=== PATIENT | male | born 1975 | race Caucasian/White ===

== ENCOUNTER 2016-12-19 18:09 | Emergency (ER) | payer OTHER ==
[2016-12-19 18:21] VITALS: BP 147/82; PULSE 72; TEMP 98.8; BMI 25.1
--- NOTE | 2016-12-19 18:22 | PDOC ---
Rapid Medical Evaluation Chief Complaint: Back Pain Time Seen by Provider: 12/19/16 18:18 Medical Evaluation: Allergies Allergy/AdvReac Type Severity Reaction Status Date / Time No Known Allergies Allergy Verified 12/19/16 18:17 12/19/16 18:21 I have performed a brief in-person evaluation of this patient. The Patient presents with a chief complaint of right flank pain x 1 week intermittent states pain is worse last night. States pain in right flank with urination. no fever or chills, no nausea Pertinent physical exam findings are: NAD unlabored breathing no cva tenderness I have ordered the following: urinalysis ordered The patient will proceed to the ED for further evaluation.
[2016-12-19 18:52] LABS: URINE APPEARANCE CLOUDY; URINE BILIRUBIN NEGATIVE (NEGATIVE); URINE BLOOD 2+ (NEGATIVE); URINE COLOR LTYELLOW; URINE GLUCOSE (UA) NEGATIVE (NEGATIVE); URINE KETONE NEGATIVE (NEGATIVE); URINE NITRITE NEGATIVE (NEGATIVE); URINE PROTEIN NEGATIVE (NEGATIVE); URINE UROBILINOGEN NEGATIVE mg/dL (0.2-1.0)
[2016-12-19 18:55] LABS: BASOPHIL 0.6 % (0-2.0); EOSINOPHIL 3.2 % (0-4.5); MCHC 34.4 g/dl (32.0-35.9); MEAN CELL VOLUME 87.1 fl (80-96); MEAN PLT VOLUME 7.6 fl (7.5-11.1); NEUTROPHILS 52.8 % (42.8-82.8); PLATELET COUNT 186 K/MM3 (134-434); RDW 12.5 % (11.9-15.9); WHITE BLOOD COUNT 3.8 K/mm3 (4.0-10.0)
[2016-12-19 19:12] LABS: ALK PHOS 98 U/L (45-117); ANION GAP 6 (8-16); BILIRUBIN,TOTAL 1.2 mg/dL (0.2-1.0); CALCIUM 8.5 mg/dL (8.5-10.1); CO2 28 mmol/L (21-32); CREATININE 1.3 mg/dL (0.7-1.3); GLUCOSE,RANDOM 113 mg/dL (74-106); SGOT/AST 42 U/L (15-37); SGPT/ALT 54 U/L (12-78); TOT PROT 6.8 g/dl (6.4-8.2)
[2016-12-19 19:21] LABS: URINE RBC 39; URINE WBC 520
--- NOTE | 2016-12-19 19:37 | PDOC ---
History of Present Illness - General Chief Complaint: Back Pain Stated Complaint: BACK PAIN Time Seen by Provider: 12/19/16 18:18 History Source: Patient Exam Limitations: No Limitations - History of Present Illness Initial Comments: 41 YOM with h/o kidney stone and pyelonephritis in the distant past who p/w intermittent squeezing right lower flank pain for the past week, worse over the past 24h, now at 10/10 still intermittently and with burning urination. It radiates to the low abdomen. He has taken ibuprofen and also has taken ampicillin from [place] for the past three days. He notes subjective fever and chills, but denies any nausea, vomiting, testicular pain/swelling, hematuria, strange urine smells, numbness, tingling, weakness of one side/part of his body, difficulty walking, radiation of the pain down the legs, midline back pain, headache, urine or bowel incontinence or retention, or other symptoms. Past History - Past Medical History Allergies/Adverse Reactions: Allergies Allergy/AdvReac Type Severity Reaction Status Date / Time No Known Allergies Allergy Verified 12/19/16 18:17 Home Medications: Ambulatory Orders Ibuprofen [Motrin -] 600 mg PO TID #21 tablet 11/02/14 Oxycodone HCl/Acetaminophen [Percocet 5/325 -] 1 tab PO Q6H #14 tablet 11/02/14 Valacyclovir HCl [Valtrex -] 1,000 mg PO TID #21 tablet 11/02/14 Sulfamethoxazole/Trimethoprim [Bactrim Ds -] 1 tab PO DAILY #30 tablet 12/19/16 COPD: No Kidney Stones: Yes - Suicide/Smoking/Psychosocial Hx Smoking History: Never smoked Information on smoking cessation initiated: No Hx Alcohol Use: No Drug/Substance Use Hx: No Review of Systems - Review of Systems Able to Perform ROS?: Yes Constitutional: Yes: Chills, Fever. No: Unexplained wgt Loss HEENTM: No: Nose Congestion, Throat Pain Respiratory: No: Cough, Shortness of Breath Cardiac (ROS): No: Chest Pain, Palpitations ABD/GI: No: Constipated, Diarrhea, Nausea, Vomiting : Yes: Dysuria, Flank Pain. No: Burning, Discharge, Hematuria, Incontinence, Testicular Swelling, Testicular Pain Musculoskeletal: No: Back Pain, Neck Pain Integumentary: No: Bruising, Rash Neurological: No: Headache, Numbness, Paresthesia, Tingling, Weakness, Dizziness Endocrine: No: Unexplained Weight Gain, Unexplained Weight Loss *Physical Exam - Vital Signs Last Vital Signs Temp Pulse Resp BP Pulse Ox 98.8 F 72 18 147/82 100 12/19/16 18:18 12/19/16 18:18 12/19/16 18:18 12/19/16 18:18 12/19/16 18:18 - Physical Exam General Appearance: Yes: Nourished, Appropriately Dressed, Other. No: Apparent Distress HEENT: positive: EOMI, Normal Voice, Hearing Grossly Normal. negative: Scleral Icterus (R), Scleral Icterus (L), Nasal Congestion Neck: positive: Trachea midline, Supple. negative: Tender, Rigid Respiratory/Chest: positive: Lungs Clear, Normal Breath Sounds. negative: Respiratory Distress, Crackles, Rhonchi, Stridor, Wheezing Cardiovascular: positive: Regular Rhythm, Regular Rate. negative: Murmur Gastrointestinal/Abdominal: positive: Normal Bowel Sounds, Soft, Other (right inferior posterior flank pain just below the level of the iliac crest). negative: Tender, Organomegaly, Pulsatile Mass, Guarding Musculoskeletal: positive: Normal Inspection. negative: CVA Tenderness, Decreased Range of Motion, Vertebral Tenderness Extremity: positive: Normal Capillary Refill, Normal Inspection, Normal Range of Motion. negative: Tender, Cyanosis Integumentary: positive: Normal Color, Dry, Warm. negative: Erythema, Rash, Bruising Neurologic: positive: conditioning coach II-XII NML intact, Fully Oriented, Alert, Normal Mood/ Affect, Normal Response, Motor Strength 5/5. negative: Numbness, Sensory Deficit, Confused, Disoriented ED Treatment Course - LABORATORY CBC & Chemistry Diagram: 12/19/16 18:38 12/19/16 18:38 - ADDITIONAL ORDERS Additional order review: Laboratory Results 12/19/16 12/19/16 12/19/16 18:38 18:38 18:38 WBC 3.8 L RBC 4.97 Hgb 14.9 Hct 43.3 MCV 87.1 MCH 30.0 MCHC 34.4 RDW 12.5 Plt Count 186 D MPV 7.6 Neutrophils % 52.8 Lymphocytes % 33.1 D Monocytes % 10.3 H Eosinophils % 3.2 Basophils % 0.6 Sodium 136 Potassium 4.2 Chloride 102 Carbon Dioxide 28 Anion Gap 6 L BUN 21 H D Creatinine 1.3 Creat Clearance w eGFR > 60 Random Glucose 113 H Calcium 8.5 Total Bilirubin 1.2 H D AST 42 H D ALT 54 D Alkaline Phosphatase 98 Total Protein 6.8 Albumin 4.0 Urine Color Ltyellow Urine Appearance Cloudy Urine pH 6.0 Ur Specific [place] 1.014 Urine Protein Negative Urine Glucose (UA) Negative Urine Ketones Negative Urine Blood 2+ H Urine Nitrite Negative Urine Bilirubin Negative Urine Urobilinogen Negative Urine WBC (Auto) 520 Urine RBC (Auto) 39 12/19/16 18:38 RBC 4.97 MCV 87.1 MCHC 34.4 RDW 12.5 MPV 7.6 Neutrophils % 52.8 Lymphocytes % 33.1 D Monocytes % 10.3 H Eosinophils % 3.2 Basophils % 0.6 Medical Decision Making - Medical Decision Making UA shows e/o UTI with some blood as well. Out of concern for obstructing renal stone with 2/[address] is ordered. Spiral CT without e/o stone or hydronephrosis or other abnormality. Pt given Toradol IM, Keflex 500 mg given in the ED and E-Rx sent. Pt is appropriate for OP management and DC home. Return precautions are discussed. *DC/Admit/Observation/Transfer Diagnosis at time of Disposition: Urinary tract infection Qualifiers: Urinary tract infection type: acute cystitis Hematuria presence: with hematuria Qualified Code(s): N30.01 - Acute cystitis with hematuria - Discharge Dispostion Disposition: HOME Condition at time of disposition: Stable Admit: No - Prescriptions Prescriptions: Sulfamethoxazole/Trimethoprim [Bactrim Ds -] 1 tab PO DAILY #30 tablet - Referrals - Patient Instructions Printed Discharge Instructions: DI for Urinary Tract Infection (UTI) Additional Instructions: You were seen in the ER for lower right back pain. We did urine tests and found a bladder infection. We also did a CT scan and there was no evidence of a stone or other problems. We gave you a dose of antibiotic here in the ER. Please also picking tech you prescription for antibiotic at the [facility] on [address] [place] [address]. and take the whole prescription as prescribed, and finish it even if you are feeling better. Follow up with your primary doctor or return to the ER for any new or worsening symptoms like worsening pain, fever that you cannot control with medications like Tylenol, or other symptoms. Print Language: ESTONIAN - Post Discharge Activity
--- NOTE | 2016-12-19 19:48 | PDOC ---
Attending Attestation - Resident Resident Name: Domenica Pineda - ED Attending Attestation I have performed the following: I have examined & evaluated the patient, The case was reviewed & discussed with the resident, I agree w/resident's findings & plan, Exceptions are as noted - HPI HPI: 12/19/16 19:45 41 year old male with past medical history of kidney stones, pyelonephritis p/w R lower flank pain x 1 week. Reports constant pain associated with dysuria, hematuria. Reports subjective fevers, chills. States last kidney stone was "a long time ago". +mild nausea but no vomiting. Took no medications today. Denies testicular tenderness - Physicial Exam PE: 12/19/16 19:48 ABD: nontender, soft, nondistended. BACK: mild R sided lower CVA tenderness - Medical Decision Making 12/19/16 19:50 Vital Signs Temp Pulse Resp BP Pulse Ox 98.8 F 72 18 147/82 100 12/19/16 18:18 12/19/16 18:18 12/19/16 18:18 12/19/16 18:18 12/19/16 18:18 I agree with plan to r/o pyelonephritis, renal colic, or obstructed infected kidney stone. Labs, UA, pain control. Spiral CT abd/pelvis and reassess.
[2016-12-19] MEDS ORDERED: KETOROLAC TROMETHAMINE 15 MG/ML VIAL IM ONE (19:51)
[2016-12-19 21:33] LABS: URINE LEUK ESTERASE 3+ (NEGATIVE)
[2016-12-19] MEDS ORDERED: KETOROLAC TROMETHAMINE 15 MG/ML VIAL ONE (21:50)
[2016-12-19] MEDS ORDERED: SULFAMETHOXAZOLE/TRIMETHOPRIM 800MG/160MG D.S. TABLET PO ONE (22:22)
[2016-12-19] MEDS ORDERED: SULFAMETHOXAZOLE/TRIMETHOPRIM 800MG/160MG D.S. TABLET ONE (23:15)
== END 2016-12-19 23:20 | disposition home or self-care (01) ==
LOC: JER 18:09
PROC: 3E0233Z Introduction of Anti-inflammatory into Muscle, Percutaneous Approach (ICD-10-PCS; principal; 2016-12-19)
DX: N30.01 Acute cystitis with hematuria (principal)
CPT/HCPCS: 36415; 74176; 80053; 81003; 81015; 85025; 96372; 99281-25

== ENCOUNTER 2018-02-25 16:46 | Emergency (ER) | payer SELFPAY ==
[2018-02-25 16:58] VITALS: BP 135/74; PULSE 70; TEMP 97.8; BMI 25.8
--- NOTE | 2018-02-25 18:01 | PDOC ---
History of Present Illness - General Chief Complaint: Nausea/Vomiting Stated Complaint: VOMITING, History Source: Patient Exam Limitations: No Limitations - History of Present Illness Initial Comments: 02/25/18 18:18 42 yo M with a hx of nephrolithiasis presents to the emergency department with N /V that began today at 8am. Per the patient, he was well while at a green party last night and denies excessive alcohol consumption, substance use, and sick contacts. Per the patient, he vomited 12x NBNB throughout the day with associative epigastric pain. Pain is described as sharp, constant, non radiating , 10/10, with no aggravating or relieving factors. Did not use medications for relief. Denies the following: fever, chills, visual changes, ears nose throat pain, chest pain, SOB, dysuria, hematuria, diarrhea, hematochezia, leg pain/ swelling, and melena. Pmhx: Refer to above Shx: None Allergies: NKDA Social: Denies tobacco, alcohol, and substance abuse. Meds: None Past History - Past Medical History Allergies/Adverse Reactions: Allergies Allergy/AdvReac Type Severity Reaction Status Date / Time No Known Allergies Allergy Verified 02/25/18 16:58 Home Medications: Ambulatory Orders Ibuprofen [Motrin -] 600 mg PO TID #21 tablet 11/02/14 Oxycodone HCl/Acetaminophen [Percocet 5/325 -] 1 tab PO Q6H #14 tablet 11/02/14 Valacyclovir HCl [Valtrex -] 1,000 mg PO TID #21 tablet 11/02/14 Sulfamethoxazole/Trimethoprim [Bactrim Ds -] 1 tab PO DAILY #30 tablet 12/19/16 COPD: No Kidney Stones: Yes - Suicide/Smoking/Psychosocial Hx Smoking History: Never smoked Hx Alcohol Use: No Drug/Substance Use Hx: No Review of Systems - Review of Systems Able to Perform ROS?: Yes Is the patient limited Czech proficient: No Constitutional: No: Chills, Diaphoresis, Fever, Weakness HEENTM: No: Eye Pain, Recent change in vision, Ear Pain, Nose Pain, Throat Pain , Mouth Pain Respiratory: No: Cough, Shortness of Breath, SOB with Exertion, Hemoptysis Cardiac (ROS): No: Chest Pain, Edema, Lightheadedness, Palpitations, Syncope, Chest Tightness ABD/GI: Yes: Nausea, Vomiting, Abdominal cramping. No: Constipated, Diarrhea, Difficulty Swallowing, Poor Appetite, Poor Fluid Intake, Rectal Bleeding, Tarry Stools : No: Burning, Dysuria, Hematuria, Urgency Musculoskeletal: No: Back Pain, Joint Pain, Neck Pain Integumentary: No: Bruising, Erythema, Flushing, Lesions, Lumps Neurological: No: Headache, Numbness, Tingling, Tremors, Ataxia, Dizziness Psychiatric: No: Change in Appetite Endocrine: No: Unexplained Weight Gain Hematologic/Lymphatic: No: Anemia *Physical Exam - Vital Signs Last Vital Signs Temp Pulse Resp BP Pulse Ox 97.8 F 70 18 135/74 99 02/25/18 16:56 02/25/18 16:56 02/25/18 16:56 02/25/18 16:56 02/25/18 16:56 - Physical Exam General Appearance: Yes: Nourished, Appropriately Dressed. No: Apparent Distress, Intoxicated HEENT: positive: EOMI, BALJIT, Normal ENT Inspection, Normal Voice, Symmetrical, TMs Normal, Pharynx Normal, Hearing Grossly Normal. negative: Pale Conjunctivae , Scleral Icterus (R), Scleral Icterus (L), Muffled/Hoarse voice, Pharyngeal Erythema, Tonsillar Exudate, Tonsillar Erythema, Nasal Congestion, Rhinorrhea, Sinus Tenderness, Hearing Decreased, Excessive drooling Neck: positive: Trachea midline. negative: Tender, Lymphadenopathy (R), Lymphadenopathy (L) Respiratory/Chest: positive: Lungs Clear, Normal Breath Sounds. negative: Chest Tender, Respiratory Distress, Accessory Muscle Use, Crackles, Rales, Rhonchi, Stridor, Wheezing, Hyperresonant, Dullness Cardiovascular: positive: Regular Rhythm, Regular Rate, S1, S2. negative: Systolic Murmur Gastrointestinal/Abdominal: positive: Normal Bowel Sounds, Tender (tender in the epigastric region with palpation. ), Flat, Soft. negative: Guarding, Rebound, Tenderness, Hernia Lymphatic: negative: Adenopathy Musculoskeletal: positive: Normal Inspection. negative: CVA Tenderness, Vertebral Tenderness Extremity: positive: Normal Capillary Refill, Normal Inspection, Normal Range of Motion. negative: Tender, Swelling, Calf Tenderness Integumentary: positive: Normal Color, Dry, Warm. negative: Jaundice, Diaphoresis, Moist, Hives, Petechiae, Rash, Swelling Neurologic: positive: certified ethical hacker II-XII NML intact, Fully Oriented, Alert, Normal Mood/ Affect, Normal Response, Motor Strength 5/5. negative: EOM Palsy, Facial Droop , Sensory Deficit Moderate Sedation - Procedure Monitoring Vital Signs: Procedure Monitoring Vital Signs Temperature 97.8 F 02/25/18 16:56 Pulse Rate 70 02/25/18 16:56 Respiratory Rate 18 02/25/18 16:56 Blood Pressure 135/74 02/25/18 16:56 O2 Sat by Pulse Oximetry (%) 99 02/25/18 16:56 ED Treatment Course - LABORATORY CBC & Chemistry Diagram: 02/25/18 18:23 02/25/18 18:23 Medical Decision Making - Medical Decision Making 42 yo M with a hx of nephrolithiasis presents to the emergency department with N /V that began today at 8am. Initial vitals; Initial Vital Signs Temp Pulse Resp BP Pulse Ox 97.8 F 70 18 135/74 99 02/25/18 16:56 02/25/18 16:56 02/25/18 16:56 02/25/18 16:56 02/25/18 16:56 Work up ddx: viral gastroenteritis vs gastritis vs GERD vs cholelithiasis vs cholecystitis vs nephrolithiasis vs UTI Laboratory Tests 02/25/18 02/25/18 18:23 18:23 WBC 6.4 RBC 5.42 Hgb 16.6 Hct 47.6 MCV 87.8 MCH 30.5 MCHC 34.8 RDW 11.9 Plt Count 190 MPV 7.7 Absolute Neuts (auto) 5.6 Neutrophils % 87.9 H D Lymphocytes % 5.9 L D Monocytes % 4.3 Eosinophils % 1.7 Basophils % 0.2 Nucleated RBC % 0 Sodium 140 Potassium 5.5 H Chloride 106 Carbon Dioxide 26 Anion Gap 9 BUN 17 Creatinine 1.2 Creat Clearance w eGFR > 60 Random Glucose 123 H Calcium 9.4 Total Bilirubin 1.7 H AST 38 H ALT 47 Alkaline Phosphatase 114 Total Protein 8.0 Albumin 4.7 Lipase 85 patient was given zofran, fluids, and tylenol for interventions. patient had significant relief of symptoms. patient's labs show 5.5 potassium with elevated glucose and bilirubin. patient had elevated bilirubin and glucose in previous visits. patient was given kayexelate for hyperkalemia treatment. patient was given a referral to primary medical care with our clinic and gastroenterology referral. he understood the need to follow up within 1 week and agreed to it. was givne return precautions. Dispo: Discharge *DC/Admit/Observation/Transfer Diagnosis at time of Disposition: Nausea & vomiting Qualifiers: Vomiting type: unspecified Vomiting Intractability: unspecified Qualified Code( s): R11.2 - Nausea with vomiting, unspecified - Discharge Dispostion Disposition: HOME Decision to Admit order: No - Referrals Referrals: [facility] [place] [Provider Group] John Malloy MD [Staff Physician] - - Patient Instructions Printed Discharge Instructions: DI for Nausea -- Adult, DI for Vomiting -- Adult Additional Instructions: you were seen in the emergency department for nausea and vomiting and abdominal pain. your labs show that you have an elevation in your glucose and bilirubin. please follow up with the cvicu rn referred to you within 3 days after discharge. please follow up with the primary medical physician group you have been referred to in the discharge packet. please return to the emergency department if you have worsening symptoms or new concerning symptoms such as fever, chills, right upper abdominal pain, turning yellow, and altered mental status. please follow up with the cvicu rn. thank you. Usted fue atendido en el servicio de urgencias por nuseas y vmitos y dolor abdominal. marcelina laboratorios muestran que tiene abimbola elevacin en koenig glucosa y bilirrubina. por favor lazarus un seguimiento con el gastroenterlogo que se le haya referido dentro de los 3 lopes posteriores al ronald. por favor, lazarus un seguimiento con el tru de mdicos primarios a los que se villagomez referido en el paquete de ronald. por favor regrese al departamento de emergencias si tiene sntomas de empeoramiento o sntomas nuevos marie fiebre, escalofros, dolor en la parte superior derecha del abdomen, color amarillo y estado mental alterado. por favor lazarus un seguimiento con el gastroenterlogo. yuniel. Print Language: ROMANSH - Post Discharge Activity
[2018-02-25] MEDS ORDERED: SODIUM CHLORIDE 1,000 ML IV STA (18:17)
[2018-02-25] MEDS ORDERED: ONDANSETRON 4 MG/2 ML VIAL IVPUSH ONE (18:17)
[2018-02-25] MEDS ORDERED: FAMOTIDINE 20 MG/50 ML IVPB 20 MG/50 ML MG IVPB ONE ×2 (18:17→18:35)
[2018-02-25] MEDS ORDERED: ACETAMINOPHEN 1000 MG/100 ML VIAL (NON FORMULARY) IVPB ONE (18:17)
[2018-02-25] MEDS ORDERED: MAG HYDROX/AL HYDROX/SIMETH 30 ML UNIT-DOSE CUP PO ONE (18:17)
--- NOTE | 2018-02-25 18:25 | PDOC ---
Attending Attestation - HPI HPI: 02/25/18 19:06 The patient is a 42 year old male with a past medical history of nephrolithiasis who presents in the ED complaining of nausea and vomiting which began today at 8am. The patient reports 12 episodes of non bilious and non bloody vomiting throughout the day with associative epigastric pain. The patient notes the pain is sharp and constant with a severity of 10/10. The patient reports going to a alliance party last night but denies excessive drinking. Denies fevers or chills. Denies chest pain or shortness of breath. Denies any other symptoms. <Timothy Salmeron - Last Filed: 02/25/18 19:06> - Resident Resident Name: Daniel Santos - ED Attending Attestation I have performed the following: I have examined & evaluated the patient, The case was reviewed & discussed with the resident, I agree w/resident's findings & plan, Exceptions are as noted - Physicial Exam PE: 02/25/18 20:10 thin well muscled 42 yo male with 1 day of nausea and vomiting 02/25/18 20:18 02/25/18 20:27 wnwd 42 yo male neck supple lungs cta b/l cvs [id number] abd soft,no rebound,no guarding no cva tenderness skin warm and dry neuro axox3,ambulating with ease psych appropriate - Medical Decision Making 02/25/18 20:30 labs reviewed and discussed w pt elevated t bili and glucose compared to previous labs,he still has elevated t bili and glucose sl bumped pt to followup at [address] [facility] benign abd exam symptoms resolved imp gastroenteritis/ d/c home <Safia Edouard - Last Filed: 02/25/18 20:31> Attestations - Attestations 02/25/18 19:07 Documentation prepared by Timothy Salmeron, acting as medical office professional instructor for Safia Edouard MD. <Timothy Salmeron - Last Filed: 02/25/18 19:06>
[2018-02-25] MEDS ORDERED: ACETAMINOPHEN INJECTION 100 ML IVPB ONE (18:34)
[2018-02-25] MEDS ORDERED: MAG HYDROX/AL HYDROX/SIMETH 30 ML UNIT-DOSE CUP ONE (18:35)
[2018-02-25 18:40] LABS: BASO % 0.2 % (0-2.0); EOS % 1.7 % (0-4.5); HEMATOCRIT 47.6 % (35.4-49); HEMOGLOBIN 16.6 GM/dL (11.7-16.9); LYMPH % 5.9 % (8-40); MCH 30.5 pg (25.7-33.7); MCHC 34.8 g/dl (32.0-35.9); MEAN CELL VOLUME 87.8 fl (80-96); MEAN PLT VOLUME 7.7 fl (7.5-11.1); MONO % 4.3 % (3.8-10.2); NEUT % 87.9 % (42.8-82.8); PLATELET COUNT 190 K/MM3 (134-434); RBC 5.42 M/mm3 (4.00-5.60); RDW 11.9 % (11.9-15.9); WHITE BLOOD COUNT 6.4 K/mm3 (4.0-10.0)
[2018-02-25 19:43] LABS: ALBUMIN 4.7 g/dl (3.4-5.0); ALK PHOS 114 U/L (45-117); ANION GAP 9 MMOL/L (8-16); BILIRUBIN,TOTAL 1.7 mg/dL (0.2-1); BLOOD UREA NITROGEN 17 mg/dL (7-18); CALCIUM 9.4 mg/dL (8.5-10.1); CHLORIDE 106 mmol/L (98-107); CO2 26 mmol/L (21-32); CREATININE 1.2 mg/dL (0.55-1.3); GLUCOSE,RANDOM 123 mg/dL (74-106); LIPASE 85 U/L (73-393); POTASSIUM 5.5 mmol/L (3.5-5.1); SGOT/AST 38 U/L (15-37); SGPT/ALT 47 U/L (13-61); SODIUM 140 mmol/L (136-145)
[2018-02-25] MEDS ORDERED: SODIUM POLYSTYRENE SULFONATE 15 GM/60 ML BOTTLE PO ONE (19:54)
== END 2018-02-25 20:49 | disposition home or self-care (01) ==
LOC: JER 16:46
PROC: 3E033GC Introduction of Other Therapeutic Substance into Peripheral Vein, Percutaneous Approach (ICD-10-PCS; principal; 2018-02-25)
PROC: 3E033GC Introduction of Other Therapeutic Substance into Peripheral Vein, Percutaneous Approach (ICD-10-PCS; 2018-02-25)
PROC: 3E033NZ Introduction of Analgesics, Hypnotics, Sedatives into Peripheral Vein, Percutaneous Approach (ICD-10-PCS; 2018-02-25)
DX: K52.9 Noninfective gastroenteritis and colitis, unspecified (principal)
CPT/HCPCS: 36415; 80053; 83690; 85025; 99281-25; 99283-25; J0131; J7030

== ENCOUNTER 2021-10-12 11:38 | Emergency (ER) | payer OTHER ==
[2021-10-12 11:52] VITALS: BP 152/96; PULSE 80; RESP 20; TEMP 98.2; BMI 25.8
[2021-10-12] MEDS ORDERED: KETOROLAC TROMETHAMINE 30 MG/1 ML VIAL IM ONE (13:07)
[2021-10-12] MEDS ORDERED: KETOROLAC TROMETHAMINE 30 MG/1 ML VIAL ONE (13:08)
== END 2021-10-12 13:25 | disposition home or self-care (01) ==
LOC: JERFT 11:38
PROC: 3E023GC Introduction of Other Therapeutic Substance into Muscle, Percutaneous Approach (ICD-10-PCS; principal; 2021-10-12)
DX: S09.90XA Unspecified injury of head, initial encounter (principal); W20.8XXA Other cause of strike by thrown, projected or falling object, initial encounter
CPT/HCPCS: 70450-TC; 72125-TC; 99284-25